=== PATIENT | female | born 1960 ===

== ENCOUNTER 2024-11-11 05:50 | Day surgery (SDC) | payer OTHER ==
[2024-11-03 13:51] VITALS: BP 142/83
[~2024-11-11] VITALS: Ht 157.5 cm; Wt 72.6 kg
[~2024-11-11 05:50] MED LIST: AMLODIPINE-OLM1 EAC1 PO; AVAPRO150 MG PO; CLONAZEPAM0.5 M1 PO; LIPITOR20 MG; METFORMIN HCL500 M3 PO; NEURONTIN600 M1 PO; PROTONIX40 MG PO; REMERON30 MG PO
[2024-11-11] MEDS ORDERED: COLACE100 MG PO (08:49)
[2024-11-11] MEDS ORDERED: TRAM1TAB98 PO (08:49)
[2024-11-11] MEDS ORDERED: POVIDONE-IODINE 118 ML BOTT TOP ONE (09:15)
[2024-11-11] MEDS ORDERED: DIBUCAINE 15 GM OINT..GM. TUBE RECTAL SCH (09:15)
[2024-11-11] MEDS ORDERED: CEFTRIAXONE SODIUM 2,000 MG VIAL IV ONE (09:15)
[2024-11-11] MEDS ORDERED: METRONIDAZOLE/SODIUM CHLORIDE 500 MG/100 ML PIGGYBACK IV SCH (09:15)
[2024-11-11] MEDS ORDERED: HEMOSTATIC MATRIX 1 KIT KIT TOP ONE (09:15)
[2024-11-11] MEDS ORDERED: MORPHINE SULFATE 4 MG/ML VIAL IV ONE ×2 (11:50)
== END 2024-11-11 14:35 | disposition home or self-care (01) ==
LOC: CIR.AMB 05:50
PROVIDERS: ATTEND Surgery
DX: D12.9 Benign neoplasm of anus and anal canal (principal); K62.1 Rectal polyp; K62.0 Anal polyp; K62.89 Other specified diseases of anus and rectum; K64.1 Second degree hemorrhoids